=== PATIENT | female | born 1985 | race African-American/Black ===

== ENCOUNTER 2018-04-29 12:08 | Emergency (ER) | payer MEDICAID ==
[~2018-04-29] VITALS: Ht 165.1 cm; Wt 80.0 kg
[2018-04-29 13:35] LABS: BASOPHILS % 0.2 % (0.0-2.0); EOSINOPHILS % 0.2 % (0.0-5.0); HEMATOCRIT. 39.3 % (36.0-48.0); HEMOGLOBIN. 13.2 g/dL (12.0-16.0); MEAN CORPUSCULAR HEMOGLOBIN 30.8 pg (28.0-32.0); MEAN CORPUSCULAR VOLUME 91.5 fL (81.0-99.0); MEAN PLATELET VOLUME 10.3 fl (7.4-10.4); MONOCYTES % 11.2 % (2.0-8.0); NEUTROPHILS % 73.4 % (40.0-76.0); PLATELET 171 x1000/uL (130-400)
[2018-04-29 13:38] LABS: CHLORIDE 108 mEq/L (98-107)
[2018-04-29 13:40] LABS: CLARITY URINE CLOUDY (CLEAR); COLOR URINE DARK YELLOW (YELLOW); KETONES URINE TRACE (NEGATIVE); LEUKOCYTE ESTERASE URINE 1+ (NEGATIVE); NITRITE URINE POSITIVE (NEGATIVE); OCCULT BLOOD URINE NEGATIVE (NEGATIVE); PH URINE 5.5 (4.5-8.0); PROTEIN URINE 1+ (NEGATIVE); SPECIFIC GRAVITY URINE 1.036 (1.005-1.030)
[2018-04-29 13:43] LABS: INR 1.1; PROTHROMBIN TIME 11.4 sec (9.4-11.6)
[2018-04-29] MEDS ORDERED: ACETAMINOPHEN 500MG TABLET PO ONE (14:00)
[2018-04-29] MEDS ORDERED: KETOROLAC 15MG/ML VIAL IV ONE (14:00)
[2018-04-29 14:50] LABS: HCG SCREEN INDETERMINATE
[2018-04-29 15:15] VITALS: BP 108/79
[2018-04-29] MEDS ORDERED: NITROFURANTOIN 100MG M/M CAPSULE PO ONE (15:15)
== END 2018-04-29 15:30 | disposition home or self-care (01) ==
LOC: ER 12:08 → MERGE 12:08 → ER 15:30
DX: S16.1XXA Strain of muscle, fascia and tendon at neck level, initial encounter (principal); S39.012A Strain of muscle, fascia and tendon of lower back, initial encounter; K80.50 Calculus of bile duct without cholangitis or cholecystitis without obstruction; N39.0 Urinary tract infection, site not specified; M25.561 Pain in right knee; F17.200 Nicotine dependence, unspecified, uncomplicated; R05 Cough; R79.1 Abnormal coagulation profile; Y08.89XA Assault by other specified means, initial encounter; Y93.89 Activity, other specified; Y92.89 Other specified places as the place of occurrence of the external cause; Y99.8 Other external cause status
CPT/HCPCS: 36415; 71045; 73562; 80053; 81003; 83690; 84703; 85025; 85610; 87086; 99285; J1885

== ENCOUNTER 2019-08-22 04:07 | Emergency (ER) | payer MEDICAID ==
[~2019-08-22] VITALS: Ht 165.1 cm; Wt 83.0 kg
[2019-08-22 06:00] VITALS: BP 120/72
[2019-08-22] MEDS ORDERED: KETOROLAC 30MG/ML VIAL IV STA (06:21)
[2019-08-22] MEDS ORDERED: SODIUM CHLORIDE 0.9% 1,000 ML IV ONE (06:21)
== END 2019-08-22 06:47 | disposition left against medical advice (07) ==
LOC: ER 04:07
DX: R07.89 Other chest pain (principal); R10.9 Unspecified abdominal pain; M79.10 Myalgia, unspecified site; F41.9 Anxiety disorder, unspecified; F17.200 Nicotine dependence, unspecified, uncomplicated
CPT/HCPCS: 93005; 99283; J7030

== ENCOUNTER 2020-01-04 10:36 | Emergency (ER) | payer MEDICAID ==
[~2020-01-04] VITALS: Ht 162.6 cm; Wt 90.0 kg
[2020-01-04 11:00] VITALS: BP 112/73
[2020-01-04] MEDS ORDERED: ONDANSETRON 4MG ODT PO ONE (12:15)
[2020-01-04 12:45] LABS: BASOPHILS % 0.4 % (0.0-2.0); EOSINOPHILS % 1.7 % (0.0-5.0); HEMATOCRIT. 37.1 % (36.0-48.0); HEMOGLOBIN. 12.7 g/dL (12.0-16.0); LYMPHOCYTES % 21.6 % (20.0-50.0); MEAN CORPUSCULAR HEMOGLOBIN 31.4 pg (28.0-32.0); MEAN CORPUSCULAR VOLUME 91.8 fL (81.0-99.0); MEAN PLATELET VOLUME 10.3 fl (7.4-10.4); MONOCYTES % 8.8 % (2.0-8.0); NEUTROPHILS % 67.5 % (40.0-76.0); PLATELET 190 x1000/uL (130-400); RED BLOOD CELL COUNT 4.04 mill/uL (4.2-5.4); RED CELL DISTRIBUTION WIDTH 13.6 % (11.6-14.6)
[2020-01-04 12:47] LABS: CLARITY URINE CLOUDY (CLEAR); COLOR URINE YELLOW (YELLOW); KETONES URINE NEGATIVE (NEGATIVE); LEUKOCYTE ESTERASE URINE 2+ (NEGATIVE); NITRITE URINE NEGATIVE (NEGATIVE); OCCULT BLOOD URINE NEGATIVE (NEGATIVE); PROTEIN URINE TRACE (NEGATIVE); SPECIFIC GRAVITY URINE 1.028 (1.005-1.030)
[2020-01-04 12:52] LABS: CHLORIDE 104 mEq/L (98-107)
[2020-01-04 12:53] LABS: INR 0.9
[2020-01-04 13:16] LABS: HCG SCREEN POSITIVE
[2020-01-04 13:17] LABS: B-HCG QUANTITATIVE 146155 mIU/mL (<3)
== END 2020-01-04 15:27 | disposition home or self-care (01) ==
LOC: ER 10:36
DX: O23.41 Unspecified infection of urinary tract in pregnancy, first trimester (principal); O09.521 Supervision of elderly multigravida, first trimester; Z3A.09 9 weeks gestation of pregnancy
CPT/HCPCS: 36415; 76700; 76801; 76817; 80053; 81003; 81025; 83690; 84702; 84703; 85025; 85610; 87086; 99285; Q0162

== ENCOUNTER 2020-01-09 16:37 | Emergency (ER) | payer MEDICAID ==
[~2020-01-09] VITALS: Ht 160 cm; Wt 90.0 kg
[2020-01-09 21:17] VITALS: BP 120/58
[2020-01-09 21:52] LABS: BASOPHILS % 0.7 % (0.0-2.0); EOSINOPHILS % 1.2 % (0.0-5.0); HEMATOCRIT. 35.6 % (36.0-48.0); HEMOGLOBIN. 12.3 g/dL (12.0-16.0); LYMPHOCYTES % 26.9 % (20.0-50.0); MEAN CORPUSCULAR HEMOGLOBIN 31.4 pg (28.0-32.0); MEAN CORPUSCULAR VOLUME 90.6 fL (81.0-99.0); MEAN PLATELET VOLUME 10.2 fl (7.4-10.4); NEUTROPHILS % 64.2 % (40.0-76.0); PLATELET 197 x1000/uL (130-400); RED BLOOD CELL COUNT 3.93 mill/uL (4.2-5.4); RED CELL DISTRIBUTION WIDTH 13.6 % (11.6-14.6)
[2020-01-09 21:57] LABS: CHLORIDE 104 mEq/L (98-107)
[2020-01-09 22:21] LABS: B-HCG QUANTITATIVE 103904 mIU/mL (<3)
[2020-01-09] MEDS ORDERED: ONDANSETRON 4MG ODT PO ONE (22:30)
[2020-01-09] MEDS ORDERED: ACETAMINOPHEN 325MG TABLET PO ONE (22:30)
[2020-01-09 22:42] LABS: CLARITY URINE TURBID (CLEAR); COLOR URINE YELLOW (YELLOW); KETONES URINE NEGATIVE (NEGATIVE); LEUKOCYTE ESTERASE URINE 2+ (NEGATIVE); NITRITE URINE NEGATIVE (NEGATIVE); OCCULT BLOOD URINE NEGATIVE (NEGATIVE); PH URINE 5.5 (4.5-8.0); PROTEIN URINE 1+ (NEGATIVE); SPECIFIC GRAVITY URINE 1.034 (1.005-1.030)
== END 2020-01-09 23:53 | disposition home or self-care (01) ==
LOC: ER 16:37
DX: O23.41 Unspecified infection of urinary tract in pregnancy, first trimester (principal); O00.01 Abdominal pregnancy with intrauterine pregnancy; Z3A.09 9 weeks gestation of pregnancy
CPT/HCPCS: 36415; 76801; 80053; 81003; 81025; 84702; 85025; 99283; Q0162

== ENCOUNTER 2020-01-10 01:22 | Emergency (ER) | payer MEDICAID ==
[~2020-01-10] VITALS: Ht 172.7 cm; Wt 82.0 kg
[2020-01-10 03:28] VITALS: BP 133/79
== END 2020-01-10 06:06 | disposition home or self-care (01) ==
LOC: ER 01:39
DX: R07.89 Other chest pain (principal); R42 Dizziness and giddiness
CPT/HCPCS: 93005; 99283

== ENCOUNTER 2025-02-13 17:24 | Emergency (ER) | payer MEDICAID ==
[~2025-02-13] VITALS: Ht 162.6 cm; Wt 105.0 kg
[2025-02-13 17:31] VITALS: PULSE 106; RESP 18; O2SAT 99
[2025-02-13 17:32] VITALS: BP 160/86; TEMP 37.1; O2SAT 100
[2025-02-13 21:22] VITALS: TEMP 98.8
[2025-02-13] MEDS: ACETAMINOPHEN 325MG TABLET PO ONE (21:22)
[2025-02-14] MEDS ORDERED: TOPUD PO (08:37)
== END 2025-02-13 23:23 | disposition home or self-care (01) ==
LOC: ER 17:24
DX: J06.9 Acute upper respiratory infection, unspecified (principal); B97.89 Other viral agents as the cause of diseases classified elsewhere; Z90.49 Acquired absence of other specified parts of digestive tract
CPT/HCPCS: 71045; 73562; 99284

== ENCOUNTER 2025-02-14 06:41 | Emergency (ER) | payer MEDICAID ==
[~2025-02-14] VITALS: Ht 162.6 cm; Wt 105.0 kg
[2025-02-14 06:45] VITALS: O2SAT 100
[2025-02-14 06:47] VITALS: BP 154/67; PULSE 72; RESP 16; TEMP 36.8; O2SAT 100
[2025-02-14 07:30] VITALS: TEMP 98.3
[2025-02-14] MEDS: ACETAMINOPHEN 325MG TABLET PO ONE (07:30)
[2025-02-14] MEDS ORDERED: TOPUD PO (08:37)
== END 2025-02-14 09:50 | disposition home or self-care (01) ==
LOC: ER 06:41
DX: B34.9 Viral infection, unspecified (principal); M25.561 Pain in right knee; F10.90 Alcohol use, unspecified, uncomplicated; Y90.9 Presence of alcohol in blood, level not specified
CPT/HCPCS: 71045; 73560; 99284